=== PATIENT | female | born 1955 | race Caucasian/White ===

== ENCOUNTER → 2021-07-14 | Outpatient (CLI) | payer OTHER | END | disposition home or self-care (01) | LOC: COVID19 18:45 | PROVIDERS: ATTEND Student in an Organized Health Care Education/Training Program | DX: Z11.52 Encounter for screening for COVID-19 (principal) ==

== ENCOUNTER 2025-09-15 18:01 | Emergency (ER) | payer MEDICARE ==
[~2025-09-15] VITALS: Wt 74.8 kg
[2025-09-15] MEDS ORDERED: Bacitracin Zinc 14 GM TUBE T ONE (18:45)
[2025-09-15] MEDS ORDERED: NEOSPORIN OIN28.3 GM T (18:48)
== END 2025-09-15 19:01 | disposition home or self-care (01) ==
LOC: ED 18:01
DX: S61.217A Laceration without foreign body of left little finger without damage to nail, initial encounter (principal); W10.8XXA Fall (on) (from) other stairs and steps, initial encounter; Y93.89 Activity, other specified; Y92.89 Other specified places as the place of occurrence of the external cause; Y99.8 Other external cause status